=== PATIENT | female | born 1935 | race Caucasian/White ===

== ENCOUNTER 2017-06-11 09:31 | Outpatient (CLI) | payer MEDICARE, BC ==
--- NOTE | 2017-06-11 12:13 | ULT ---
RIGHT UPPER QUADRANT ULTRASOUND: Date: 06-11-17 History: Right upper quadrant abdominal pain. FINDINGS: The pancreas and common duct are obscured due to shadowing from bowel gas. There is a 1.9 cm hyperechoic mass in the right hepatic lobe. This may potentially represent a small hemangioma, but further imaging is recommended for further characterization. Gallbladder demonstrates a normal sonographic appearance. No gallbladder calculus is seen. Although t he common duct is not visualized, there does not appear to be intrahepatic biliary ductal dilatation. Limited visualized portions of the IVC and right kidney demonstrate a normal sonographic appearance. The right kidney measures 9.3 cm in length. IMPRESSION: 1. Hyperechoic mass in the right hepatic lobe. Further evaluation with CT abdomen following liver mas s protocol is recommended. 2. Nonvisualization of the common duct and pancreas. 3. No gallbladder calculi are seen. POS: ADITHYA
== END 2017-06-11 09:32 | disposition home or self-care (01) ==
LOC: ULT 09:31
PROVIDERS: ATTEND Family Medicine
DX: R10.9 Unspecified abdominal pain (principal); R16.0 Hepatomegaly, not elsewhere classified
CPT/HCPCS: 76705

== ENCOUNTER 2017-06-24 08:52 | Outpatient (CLI) | payer MEDICARE, BC ==
--- NOTE | 2017-06-24 15:32 | RAD ---
DOUBLE CONTRAST UPPER GI WITH SMALL BOWEL FOLLOW THROUGH: Date: 06/24/17 INDICATION: History of hiatal hernia. FLUOROSCOPIC TIME: 5.8 minutes with total exposure of 442.23 mGy*cm^2. FINDINGS: As seen on the comparison CT examination of 10/09/16 is moderate to prominent hiatal hernia. There ar e numerous tertiary contractions of the mid to distal esophagus. No definite intraluminal mass or str icture was identified. There was mild to moderate reflux demonstrated up to a mid thoracic spinal lev el. No definite intraluminal mass is evident within the stomach. Visualized proximal small bowel appe ared within normal limits on upper GI examination. Small bowel appeared normal on the small bowel fol low through examination. The small bowel transit time was 2 hours and 45 minutes. IMPRESSION: 1. Moderate to large hiatal hernia. 2. Numerous tertiary contractions of mid to distal esophagus may be related to presbyesophagus or re flux esophagitis. 3. Moderate gastroesophageal reflux. 4. Normal small bowel follow through. POS: ADITHYA
== END 2017-06-24 08:53 | disposition home or self-care (01) ==
LOC: RAD 08:52
PROVIDERS: ATTEND Family Medicine
DX: K44.9 Diaphragmatic hernia without obstruction or gangrene (principal); R13.10 Dysphagia, unspecified; R10.9 Unspecified abdominal pain; K21.9 Gastro-esophageal reflux disease without esophagitis
CPT/HCPCS: 74249

== ENCOUNTER 2018-12-03 15:37 | Outpatient (CLI) | payer MEDICARE, BC ==
--- NOTE | 2018-12-03 16:04 | RAD ---
EXAM: XR Abdomen 2 View PROVIDED CLINICAL HISTORY: Abdominal pain and diarrhea for 4 weeks COMPARISON: [facility] abdominal radiograph from upper GI on 06/24/2017 FINDINGS: Bowel gas pattern is overall nonspecific. Postsurgical changes are again seen in the epigastric regio n. No suspicious calcifications are seen. No suspicious calcifications are seen. Degenerative changes are again noted in the spine. IMPRESSION: Nonspecific bowel gas pattern.
== END 2018-12-03 15:38 | disposition home or self-care (01) ==
LOC: BICRAD 15:37
PROVIDERS: ATTEND Physician Assistant Medical
DX: R19.7 Diarrhea, unspecified (principal)
CPT/HCPCS: 74019

== ENCOUNTER 2019-01-15 08:05 | Outpatient (CLI) | payer MEDICARE, BC ==
--- NOTE | 2019-01-15 09:43 | ULT ---
LIVER ULTRASOUND: HISTORY: Epigastric pain, diarrhea. FINDINGS: Exam is technically difficult due to body habitus. The gallbladder is normal appearance. The common duct is difficult to visualize. It appears to be in the 3-4 mm range. The liver measures approxima tely 13 cm in length. Equivocal area of increased echogenicity within the right lobe not a definitiv e abnormality given the technically limited factors of this exam. DOPPLER EVALUATION WITH SPECTRAL ANALYSIS: Normal flow pattern is shown within the liver. The spleen measures 9.6 cm in length. The right kidney is normal in size and not obstructed. IMPRESSION: Technically limited exam. No definitive abnormality is seen. Subtle area of altered echogenicity in the right lobe of the liver is probably just related to technical factors. It does not have the typ ical echogenic appearance of a hemangioma. POS: [facility]
== END 2019-01-15 08:06 | disposition home or self-care (01) ==
LOC: BICULT 08:05
PROVIDERS: ATTEND Internal Medicine Gastroenterology
DX: R10.13 Epigastric pain (principal); R19.7 Diarrhea, unspecified; K76.89 Other specified diseases of liver
CPT/HCPCS: 76705

== ENCOUNTER 2019-08-14 08:14 | Outpatient (CLI) | payer MEDICARE, BC ==
--- NOTE | 2019-08-14 09:36 | CT ---
CT Abdomen Pelvis W Con: 08/14/2019 12:00 AM CLINICAL INFORMATION: Chronic diarrhea, weight loss, and upper abdominal pain COMPARISON: 10/09/2016 TECHNIQUE: Multiple contiguous axial images were obtained and a CT of the abdomen and pelvis with IV contrast. Oral contrast was administered. Coronal and sagittal reformats were performed. FINDINGS: Lower Chest: Moderate hiatal hernia. There is stable thickening of the wall of the stomach at the lev el of the diaphragm which may represent postsurgical change from a Edilia fundoplication. Abdomen: Liver: An enhancing mass in the right lobe the liver demonstrates peripheral puddling and likely repr esents a hemangioma measuring 1.4 cm in size. Bile Ducts: Normal caliber. Gallbladder: No calcified gallstones. Normal caliber wall. Pancreas: within normal limits. Spleen: within normal limits. Adrenals: within normal limits. Kidneys: within normal limits. Pelvis: Reproductive Organs: Status post hysterectomy. Ureters: within normal limits. Bladder: within normal limits. Peritoneum: No ascites or free air, no fluid collection. Bowel: Normal caliber. Scattered diverticula in the colon. Mesentery and Retroperitoneum: No enlarged mesenteric or retroperitoneal lymph nodes. Vessels: Normal. Abdominal Wall: Small bilateral fat-containing inguinal hernias. Bones: Degenerative changes in the spine. IMPRESSION: 1. Hepatic hemangioma 2. Hiatal hernia
[2019-08-14] MEDS ORDERED: Iopamidol-370 76% 500 ML 1 ML ONE (10:33)
== END 2019-08-14 08:15 | disposition home or self-care (01) ==
LOC: BICCT 08:14
PROVIDERS: ATTEND Physician Assistant Medical
DX: K52.9 Noninfective gastroenteritis and colitis, unspecified (principal); R10.10 Upper abdominal pain, unspecified; R63.4 Abnormal weight loss; K44.9 Diaphragmatic hernia without obstruction or gangrene; D18.03 Hemangioma of intra-abdominal structures
CPT/HCPCS: 74177; 82565; Q9967

== ENCOUNTER 2021-04-21 12:13 | Outpatient (CLI) | payer MEDICARE, BC | END 2021-04-21 12:14 | disposition home or self-care (01) | LOC: BICRAD 12:13 | PROVIDERS: ATTEND Family Medicine | DX: M79.662 Pain in left lower leg (principal); M25.562 Pain in left knee ==

== ENCOUNTER 2022-05-03 10:47 | Outpatient (CLI) | payer MEDICARE, BC | END 2022-05-03 10:48 | disposition home or self-care (01) | LOC: RAD 10:47 | PROVIDERS: ATTEND Physician Assistant Medical | DX: R10.13 Epigastric pain (principal); K44.9 Diaphragmatic hernia without obstruction or gangrene; K22.4 Dyskinesia of esophagus; R11.0 Nausea | CPT/HCPCS: 74220 ==

== ENCOUNTER 2022-08-16 17:10 | Inpatient (IN) | payer BC, MEDICARE ==
[2022-08-16] MEDS ORDERED: Fentanyl 100 MCG/2 ML VIAL ONE (17:38)
[2022-08-16] MEDS ORDERED: Morphine 2 MG/ML VIAL ONE ×2 (19:10→20:36)
[2022-08-16] MEDS ORDERED: Morphine 2 MG/ML VIAL SLOW IVP PRN (23:42)
[2022-08-16] MEDS ORDERED: Acetaminophen 325 MG TAB PO PRN (23:42)
[2022-08-16] MEDS ORDERED: Ondansetron PF 4 MG/2 ML Vial IVP PRN (23:42)
[2022-08-16] MEDS ORDERED: Ondansetron ODT 4 MG TAB PO PRN (23:42)
[2022-08-17 00:14] LABS: #Eosinphils 0.1 thou/uL (0.0-0.7); #Lymphocytes 0.7 thou/uL (1.20-3.40); #Monocytes 0.5 thou/uL (0.11-0.59); #Neutrophils 5.8 thou/uL (1.40-6.50); %Basophils 0.2 % (0.0-1.0); %Eosinophils 1.4 % (0.0-10.0); %Lymphocytes 10.2 % (21.0-51.0); %Monocytes 7.3 % (0.0-10.0); Hemoglobin 12.2 g/dL (12.0-16.0); Mean Corpuscular HGB CONC 32.5 g/dL (32.0-36.0); Mean Corpuscular Hemoglobin 28.3 pg (27.0-31.0); Mean Corpuscular Volume 87.2 fl (78.0-98.0); Mean Platelet Volume 8.6 fL (7.4-10.4); Platelet Count 139 10x3/uL (130-400); RBC Distribution Width 14.3 % (11.5-14.5); White Blood Cell (WBC) Count 7.2 10x3/uL (4.8-10.8)
[2022-08-17 00:43] LABS: ALT (SGPT) 10 U/L (8-55); AST (SGOT) 17 U/L (5-34); Albumin 3.6 g/dL (3.4-4.8); Alkaline Phosphatase 149 U/L (40-110); Anion Gap 12 mmol/L (10-20); BUN (Urea Nitrogen) 12 mg/dL (9.8-20.1); Calc. Creatinine Clearance 0 mL/min (70-130); Calcium 9.1 mg/dL (7.8-10.44); Carbon Dioxide 22 mmol/L (23-31); Chloride 107 mmol/L (98-107); Estimated GFR 75; Globulin 3.2 g/dL (2.4-3.5); Glucose 122 mg/dL (83-110); Potassium 4.2 mmol/L (3.5-5.1); Protein, Total 6.8 g/dL (5.8-8.1); Sodium 137 mmol/L (136-145)
[2022-08-17] MEDS ORDERED: Morphine 2 MG/ML VIAL ONE (01:41)
[2022-08-17 02:25] LABS: Bilirubin, Total 0.6 mg/dL (0.2-1.2)
[2022-08-17 02:32] VITALS: BMI 31.8
[2022-08-17] MEDS: HYDROcodone/Acetaminophen 5/325 mg Tablet PO PRN ×4 (03:37→21:13)
[2022-08-17] MEDS: Losartan 25 MG TAB PO SCH (08:49)
[2022-08-17] MEDS: Amlodipine 10 MG TAB PO SCH (08:49)
[2022-08-17] MEDS: Atorvastatin Calcium 10 MG TAB PO SCH (19:59)
[2022-08-17] MEDS: Metoprolol Tartrate 25 MG TAB PO SCH (20:02)
[2022-08-18] MEDS: HYDROcodone/Acetaminophen 5/325 mg Tablet PO PRN ×2 (05:20→10:41)
[2022-08-18] MEDS: Amlodipine 10 MG TAB PO SCH (08:27)
[2022-08-18] MEDS: Losartan 25 MG TAB PO SCH (08:27)
[2022-08-18] MEDS ORDERED: FLU VACC QS2022-23(65YR UP)/PF 240 MCG/0.7 ML SYRINGE IM ONE (09:00)
[2022-08-18] MEDS ORDERED: Polyethylene Glycol 3350 17 GM Packet PO PRN (15:17)
[2022-08-18] MEDS ORDERED: Bisacodyl 10 MG SUPP PR PRN (15:18)
[2022-08-18] MEDS: Metoprolol Tartrate 25 MG TAB PO SCH (21:05)
[2022-08-18] MEDS: Atorvastatin Calcium 10 MG TAB PO SCH (21:05)
[2022-08-18] MEDS: Polyethylene Glycol 3350 17 GM Packet PO SCH (21:05)
[2022-08-19] MEDS: Polyethylene Glycol 3350 17 GM Packet PO SCH ×2 (07:46→20:27)
[2022-08-19] MEDS: HYDROcodone/Acetaminophen 5/325 mg Tablet PO PRN (07:46)
[2022-08-19] MEDS: Losartan 25 MG TAB PO SCH (07:47)
[2022-08-19] MEDS: Amlodipine 10 MG TAB PO SCH (07:51)
[2022-08-19] MEDS: Acetaminophen 500 MG TAB PO SCH ×2 (15:36→20:27)
[2022-08-19] MEDS: Metoprolol Tartrate 25 MG TAB PO SCH (20:28)
[2022-08-19] MEDS: Atorvastatin Calcium 10 MG TAB PO SCH (20:28)
[2022-08-20] MEDS: Acetaminophen 500 MG TAB PO SCH ×3 (08:22→20:48)
[2022-08-20] MEDS: Polyethylene Glycol 3350 17 GM Packet PO SCH ×2 (08:24→20:49)
[2022-08-20] MEDS: Amlodipine 10 MG TAB PO SCH (08:25)
[2022-08-20] MEDS: Losartan 25 MG TAB PO SCH (08:25)
[2022-08-20] MEDS: Atorvastatin Calcium 10 MG TAB PO SCH (20:49)
[2022-08-20] MEDS: Metoprolol Tartrate 25 MG TAB PO SCH (20:50)
[2022-08-20] MEDS: oxyCODONE 5 MG TAB PO PRN (23:26)
[2022-08-21] MEDS: Polyethylene Glycol 3350 17 GM Packet PO SCH ×2 (09:57→20:54)
[2022-08-21] MEDS: Acetaminophen 500 MG TAB PO SCH ×3 (09:57→20:54)
[2022-08-21] MEDS: Losartan 25 MG TAB PO SCH (09:58)
[2022-08-21] MEDS: Amlodipine 10 MG TAB PO SCH (09:59)
[2022-08-21] MEDS: Metoprolol Tartrate 25 MG TAB PO SCH (20:55)
[2022-08-21] MEDS: Atorvastatin Calcium 10 MG TAB PO SCH (20:55)
[2022-08-22] MEDS: oxyCODONE 5 MG TAB PO PRN (04:23)
[2022-08-22] MEDS: Losartan 25 MG TAB PO SCH (09:01)
[2022-08-22] MEDS: Acetaminophen 500 MG TAB PO SCH ×3 (09:01→21:32)
[2022-08-22] MEDS: Polyethylene Glycol 3350 17 GM Packet PO SCH ×2 (09:01→21:32)
[2022-08-22] MEDS: Amlodipine 10 MG TAB PO SCH (09:01)
[2022-08-22] MEDS: Metoprolol Tartrate 25 MG TAB PO SCH (21:32)
[2022-08-22] MEDS: Atorvastatin Calcium 10 MG TAB PO SCH (21:32)
[2022-08-23 08:11] LABS: #Eosinphils 0.2 thou/uL (0.0-0.7); #Lymphocytes 0.9 thou/uL (1.20-3.40); #Monocytes 0.6 thou/uL (0.11-0.59); #Neutrophils 2.9 thou/uL (1.40-6.50); %Basophils 0.6 % (0.0-1.0); %Eosinophils 4.9 % (0.0-10.0); %Lymphocytes 18.4 % (21.0-51.0); %Monocytes 13.1 % (0.0-10.0); Hemoglobin 11.8 g/dL (12.0-16.0); Mean Corpuscular Hemoglobin 28.6 pg (27.0-31.0); Mean Corpuscular Volume 89.4 fl (78.0-98.0); Mean Platelet Volume 8.6 fL (7.4-10.4); Platelet Count 152 10x3/uL (130-400); RBC Distribution Width 14.7 % (11.5-14.5); Red Blood Cell (RBC) Count 4.14 mill/uL (4.20-5.40); White Blood Cell (WBC) Count 4.6 10x3/uL (4.8-10.8)
[2022-08-23 08:32] LABS: Anion Gap 14 mmol/L (10-20); BUN (Urea Nitrogen) 15 mg/dL (9.8-20.1); Calc. Creatinine Clearance 65 mL/min (70-130); Calcium 9.4 mg/dL (7.8-10.44); Carbon Dioxide 25 mmol/L (23-31); Chloride 104 mmol/L (98-107); Estimated GFR 69; Glucose 105 mg/dL (83-110); Potassium 4.6 mmol/L (3.5-5.1); Sodium 138 mmol/L (136-145)
[2022-08-23] MEDS: Polyethylene Glycol 3350 17 GM Packet PO SCH ×2 (09:43→20:35)
[2022-08-23] MEDS: Acetaminophen 500 MG TAB PO SCH ×3 (09:43→20:36)
[2022-08-23] MEDS: Amlodipine 10 MG TAB PO SCH (09:43)
[2022-08-23] MEDS: Losartan 25 MG TAB PO SCH (09:44)
[2022-08-23] MEDS: Atorvastatin Calcium 10 MG TAB PO SCH (20:35)
[2022-08-23] MEDS: Metoprolol Tartrate 25 MG TAB PO SCH (20:35)
[2022-08-23] MEDS: oxyCODONE 5 MG TAB PO PRN (20:36)
[2022-08-24 07:11] LABS: #Eosinphils 0.2 thou/uL (0.0-0.7); #Monocytes 0.5 thou/uL (0.11-0.59); #Neutrophils 3.3 thou/uL (1.40-6.50); %Basophils 0.2 % (0.0-1.0); %Eosinophils 3.7 % (0.0-10.0); %Lymphocytes 19.3 % (21.0-51.0); %Monocytes 10.5 % (0.0-10.0); %Neutrophils 66.4 % (42.0-75.0); Hemoglobin 11.7 g/dL (12.0-16.0); Mean Corpuscular HGB CONC 31.7 g/dL (32.0-36.0); Mean Corpuscular Volume 91.3 fl (78.0-98.0); Platelet Count 146 10x3/uL (130-400); RBC Distribution Width 14.6 % (11.5-14.5); Red Blood Cell (RBC) Count 4.05 mill/uL (4.20-5.40); White Blood Cell (WBC) Count 4.9 10x3/uL (4.8-10.8)
[2022-08-24 07:35] LABS: Anion Gap 11 mmol/L (10-20); BUN (Urea Nitrogen) 14 mg/dL (9.8-20.1); Calc. Creatinine Clearance 66 mL/min (70-130); Calcium 9.2 mg/dL (7.8-10.44); Carbon Dioxide 26 mmol/L (23-31); Chloride 104 mmol/L (98-107); Estimated GFR 70; Glucose 101 mg/dL (83-110); Potassium 4.7 mmol/L (3.5-5.1); Sodium 136 mmol/L (136-145)
[2022-08-24] MEDS: Losartan 25 MG TAB PO SCH (08:31)
[2022-08-24] MEDS: Amlodipine 10 MG TAB PO SCH (08:31)
[2022-08-24] MEDS: Acetaminophen 500 MG TAB PO SCH ×3 (08:31→21:08)
[2022-08-24] MEDS: Polyethylene Glycol 3350 17 GM Packet PO SCH ×2 (08:32→21:08)
[2022-08-24] MEDS: Metoprolol Tartrate 25 MG TAB PO SCH (21:08)
[2022-08-24] MEDS: Atorvastatin Calcium 10 MG TAB PO SCH (21:08)
[2022-08-25] MEDS: oxyCODONE 5 MG TAB PO PRN (05:13)
[2022-08-25] MEDS: Amlodipine 10 MG TAB PO SCH (08:43)
[2022-08-25] MEDS: Acetaminophen 500 MG TAB PO SCH ×3 (08:43→20:49)
[2022-08-25] MEDS: Losartan 25 MG TAB PO SCH (08:43)
[2022-08-25] MEDS: Polyethylene Glycol 3350 17 GM Packet PO SCH ×2 (08:44→20:46)
[2022-08-25] MEDS: Atorvastatin Calcium 10 MG TAB PO SCH (20:51)
[2022-08-25] MEDS: Metoprolol Tartrate 25 MG TAB PO SCH (20:51)
[2022-08-26] MEDS: Amlodipine 10 MG TAB PO SCH (08:55)
[2022-08-26] MEDS: Losartan 25 MG TAB PO SCH (08:56)
[2022-08-26] MEDS: Polyethylene Glycol 3350 17 GM Packet PO SCH ×2 (08:57→20:40)
[2022-08-26] MEDS: Acetaminophen 500 MG TAB PO SCH ×3 (08:59→20:39)
[2022-08-26] MEDS: Atorvastatin Calcium 10 MG TAB PO SCH (20:39)
[2022-08-26] MEDS: Metoprolol Tartrate 25 MG TAB PO SCH (20:39)
[2022-08-27] MEDS: Acetaminophen 500 MG TAB PO SCH ×2 (08:24→12:45)
[2022-08-27] MEDS: Polyethylene Glycol 3350 17 GM Packet PO SCH (08:25)
[2022-08-27] MEDS: Amlodipine 10 MG TAB PO SCH (08:25)
[2022-08-27] MEDS: Losartan 25 MG TAB PO SCH (08:25)
[2022-08-27 08:28] VITALS: BP 143/65
[2022-08-27 09:18] VITALS: TEMP 97.3
[2022-08-27] MEDS ORDERED: HYDROcodone/Acetaminophen 5/325 mg Tablet PO PRN (13:31)
[2022-08-27] MEDS ORDERED: Lidocaine 5% Patch TD SCH (13:45)
[2022-08-27] MEDS ORDERED: Transdermal Patch Removal TOP SCH ×2 (21:00)
[2022-08-28] MEDS ORDERED: Lidocaine 5% Patch TD SCH (09:00)
== END 2022-08-27 18:06 | DRG 552 ==
LOC: ERS 17:10 → T4-B 23:30 → OBSVTOIN 08-18 15:20
PROVIDERS: ADMIT Hospitalist; ATTEND Hospitalist
DX: M48.061 Spinal stenosis, lumbar region without neurogenic claudication (principal); M48.54XA Collapsed vertebra, not elsewhere classified, thoracic region, initial encounter for fracture; I48.91 Unspecified atrial fibrillation; E78.5 Hyperlipidemia, unspecified; I10 Essential (primary) hypertension; K59.00 Constipation, unspecified; Z20.822 Contact with and (suspected) exposure to COVID-19; M47.816 Spondylosis without myelopathy or radiculopathy, lumbar region; M43.16 Spondylolisthesis, lumbar region; M40.204 Unspecified kyphosis, thoracic region; Z28.21 Immunization not carried out because of patient refusal; Z79.899 Other long term (current) drug therapy; Z90.710 Acquired absence of both cervix and uterus; Z90.89 Acquired absence of other organs; Z98.890 Other specified postprocedural states
CPT/HCPCS: 36415; 72072; 72100; 72131; 80048; 80053; 85025; 87811; 96374; 96375; 96376; J1650; J2272; J3010; U0003; U0005

== ENCOUNTER 2023-01-03 13:30 | Outpatient (CLI) | payer MEDICARE | END 2023-01-03 13:31 | disposition home or self-care (01) | LOC: ULT 13:30 | PROVIDERS: ATTEND Family Medicine | DX: G45.9 Transient cerebral ischemic attack, unspecified (principal) | CPT/HCPCS: 93880 ==

== ENCOUNTER 2023-05-20 07:41 | Inpatient (IN) | payer BC, MEDICARE ==
[2023-05-20 08:12] LABS: #Eosinphils 0.2 thou/uL (0.0-0.7); #Monocytes 0.8 thou/uL (0.11-0.59); #Neutrophils 8.3 thou/uL (1.40-6.50); %Basophils 0.2 % (0.0-1.0); %Lymphocytes 13.8 % (21.0-51.0); %Neutrophils 76.8 % (42.0-75.0); Hematocrit 42.5 % (36.0-47.0); Hemoglobin 13.5 g/dL (12.0-16.0); Mean Corpuscular HGB CONC 31.8 g/dL (32.0-36.0); Mean Corpuscular Hemoglobin 29.1 pg (27.0-31.0); Mean Corpuscular Volume 91.6 fl (78.0-98.0); Mean Platelet Volume 10.5 fL (7.4-10.4); Platelet Count 160 10x3/uL (130-400); RBC Distribution Width 13.5 % (11.5-14.5); Red Blood Cell (RBC) Count 4.64 mill/uL (4.20-5.40); White Blood Cell (WBC) Count 10.8 10x3/uL (4.8-10.8)
[2023-05-20] MEDS ORDERED: Aspirin Chewable 81 MG TAB ONE (08:25)
[2023-05-20] MEDS ORDERED: Morphine 4 MG/ML VIAL ONE (08:25)
[2023-05-20 08:34] LABS: ALT (SGPT) 7 U/L (8-55); AST (SGOT) 15 U/L (5-34); Albumin 4.4 g/dL (3.4-4.8); Alkaline Phosphatase 140 U/L (40-110); Anion Gap 14 mmol/L (10-20); BUN (Urea Nitrogen) 13 mg/dL (9.8-20.1); Bilirubin, Total 0.4 mg/dL (0.2-1.2); Calc. Creatinine Clearance 0 mL/min (70-130); Calcium 9.8 mg/dL (7.8-10.44); Carbon Dioxide 21 mmol/L (23-31); Chloride 108 mmol/L (98-107); Estimated GFR 57; Globulin 3.2 g/dL (2.4-3.5); Glucose 162 mg/dL (83-110); Lipase 23 U/L (8-78); Magnesium 2.1 mg/dL (1.6-2.6); Potassium 4.3 mmol/L (3.5-5.1); Protein, Total 7.6 g/dL (5.8-8.1); Sodium 139 mmol/L (136-145)
[2023-05-20 08:36] LABS: Troponin I Less than 0.010 ng/mL (< 0.028)
[2023-05-20] MEDS ORDERED: Prochlorperazine 10 MG/2 ML VIAL ONE (09:04)
[2023-05-20] MEDS ORDERED: Benzocaine 20% Spray 60 ML CAN ONE (12:42)
[2023-05-20] MEDS ORDERED: Ondansetron ODT 4 MG TAB PO PRN (12:42)
[2023-05-20] MEDS ORDERED: Ondansetron PF 4 MG/2 ML Vial IVP PRN (12:42)
[2023-05-20] MEDS ORDERED: TETANUS, DIPHTHERIA TOX,ADULT (TDVAX) 0.5 ML VIAL IM ONE (12:42)
[2023-05-20] MEDS ORDERED: Ketorolac Tromethamine 30 MG/ML VIAL IVP PRN (12:49)
[2023-05-20] MEDS ORDERED: Ondansetron PF 4 MG/2 ML Vial ONE (13:30)
[2023-05-20] MEDS ORDERED: Morphine 2 MG/ML VIAL ONE (13:30)
[2023-05-20 17:49] VITALS: BMI 26.6
[2023-05-20] MEDS: Lactated Ringer's 1,000 ML IV SCH (18:35)
[2023-05-20] MEDS: Morphine 2 MG/ML VIAL SLOW IVP PRN ×2 (18:50→21:05)
[2023-05-20] MEDS: Metoprolol Tartrate 25 MG TAB PO SCH (20:52)
[2023-05-20] MEDS: Trospium 20 MG TAB PO SCH (20:52)
[2023-05-21] MEDS: Morphine 2 MG/ML VIAL SLOW IVP PRN
[2023-05-21] MEDS: Lactated Ringer's 1,000 ML IV SCH ×2 (00:01→08:59)
[2023-05-21 05:14] LABS: #Eosinphils 0.1 thou/uL (0.0-0.7); #Monocytes 0.8 thou/uL (0.11-0.59); #Neutrophils 6.1 thou/uL (1.40-6.50); %Basophils 0.4 % (0.0-1.0); %Eosinophils 1.7 % (0.0-10.0); %Lymphocytes 7.4 % (21.0-51.0); %Monocytes 9.9 % (0.0-10.0); %Neutrophils 80.2 % (42.0-75.0); Hematocrit 38.6 % (36.0-47.0); Hemoglobin 11.8 g/dL (12.0-16.0); Mean Corpuscular HGB CONC 30.6 g/dL (32.0-36.0); Mean Corpuscular Hemoglobin 28.9 pg (27.0-31.0); Mean Platelet Volume 10.3 fL (7.4-10.4); Platelet Count 144 10x3/uL (130-400); RBC Distribution Width 13.6 % (11.5-14.5); Red Blood Cell (RBC) Count 4.09 mill/uL (4.20-5.40); White Blood Cell (WBC) Count 7.6 10x3/uL (4.8-10.8)
[2023-05-21 05:19] LABS: Mean Corpuscular Volume 94.4 fl (78.0-98.0)
[2023-05-21 05:47] LABS: Anion Gap 18 mmol/L (10-20); BUN (Urea Nitrogen) 11 mg/dL (9.8-20.1); Calc. Creatinine Clearance 54 mL/min (70-130); Calcium 9.1 mg/dL (7.8-10.44); Carbon Dioxide 24 mmol/L (23-31); Chloride 108 mmol/L (98-107); Estimated GFR 66; Glucose 116 mg/dL (83-110); Potassium 4.8 mmol/L (3.5-5.1); Sodium 145 mmol/L (136-145)
[2023-05-21] MEDS ORDERED: Pantoprazole 40 MG VIAL IVP SCH (09:00)
[2023-05-21] MEDS ORDERED: Non-Formulary Item 1 EACH (Omeprazole [Omeprazole] 20 MG Capsule.Dr) PO SCH (09:00)
[2023-05-21] MEDS ORDERED: Non-Formulary Item 1 EACH (Losartan Potassium [Cozaar] 50 MG Tablet) PO SCH ×2 (09:00)
[2023-05-21] MEDS: Amlodipine 10 MG TAB PO SCH (09:34)
[2023-05-21] MEDS: Losartan 25 MG TAB PO SCH (09:35)
[2023-05-21] MEDS: Trospium 20 MG TAB PO SCH ×2 (09:36→21:43)
[2023-05-21] MEDS: Lidocaine 4% Patch TD SCH (09:36)
[2023-05-21] MEDS ORDERED: Colestipol 1 GM TAB PO SCH (21:00)
[2023-05-21] MEDS ORDERED: Atorvastatin Calcium 10 MG TAB PO SCH (21:00)
[2023-05-21] MEDS ORDERED: Transdermal Patch Removal TOP SCH (21:00)
[2023-05-21] MEDS ORDERED: Simvastatin 20 MG TAB PO SCH (21:00)
[2023-05-21] MEDS: Metoprolol Tartrate 25 MG TAB PO SCH (21:43)
[2023-05-22 08:01] VITALS: BP 135/60; TEMP 98.2
[2023-05-22] MEDS ORDERED: Clopidogrel Bisulfate 75 MG TAB PO SCH (09:00)
[2023-05-22] MEDS ORDERED: Aspirin 81 mg Enteric Coated Tablet PO SCH (09:00)
[2023-05-22] MEDS: Trospium 20 MG TAB PO SCH (09:10)
[2023-05-22] MEDS: Lidocaine 4% Patch TD SCH (09:10)
[2023-05-22] MEDS: Amlodipine 10 MG TAB PO SCH (09:10)
[2023-05-22] MEDS: Losartan 25 MG TAB PO SCH (09:11)
[2023-05-23] MEDS ORDERED: FLU VACC QS2023(65UP)/MF59C/PF 60 MCG/0.5 ML SYRINGE IM ONE (18:30)
== END 2023-05-22 12:00 | disposition home or self-care (01) | DRG 389 ==
LOC: ERS 07:41 → SURG B 12:48
PROVIDERS: ADMIT Specialist; ATTEND Specialist
PROC: 0D9670Z Drainage of Stomach with Drainage Device, Via Natural or Artificial Opening (ICD-10-PCS; principal; 2023-05-20)
DX: K56.609 Unspecified intestinal obstruction, unspecified as to partial versus complete obstruction (principal); J98.11 Atelectasis; K44.9 Diaphragmatic hernia without obstruction or gangrene; K21.9 Gastro-esophageal reflux disease without esophagitis; Z96.653 Presence of artificial knee joint, bilateral; I10 Essential (primary) hypertension; Z79.899 Other long term (current) drug therapy; Z98.890 Other specified postprocedural states
CPT/HCPCS: 36415; 44500; 71045; 74019; 74177; 74340; 80048; 80053; 83605; 83690; 83735; 83880; 84484; 85025; 93005; 94760; 96365; 96366; 96375; 96376; J0780; J1650; J1885; J2270; J2272; J2405; J7120

== ENCOUNTER 2023-05-27 12:39 | Emergency (ER) | payer MEDICARE ==
[2023-05-27 13:49] LABS: #Eosinphils 0.3 thou/uL (0.0-0.7); #Monocytes 0.7 thou/uL (0.11-0.59); #Neutrophils 5.6 thou/uL (1.40-6.50); %Basophils 0.4 % (0.0-1.0); %Eosinophils 4.2 % (0.0-10.0); %Lymphocytes 10.8 % (21.0-51.0); %Monocytes 9.7 % (0.0-10.0); %Neutrophils 74.6 % (42.0-75.0); Hematocrit 41.5 % (36.0-47.0); Mean Corpuscular HGB CONC 31.3 g/dL (32.0-36.0); Mean Corpuscular Volume 92.6 fl (78.0-98.0); Mean Platelet Volume 10.3 fL (7.4-10.4); Platelet Count 151 10x3/uL (130-400); RBC Distribution Width 14.1 % (11.5-14.5); Red Blood Cell (RBC) Count 4.48 mill/uL (4.20-5.40); White Blood Cell (WBC) Count 7.4 10x3/uL (4.8-10.8)
[2023-05-27 14:16] LABS: ALT (SGPT) Less than 7 U/L (8-55); AST (SGOT) 12 U/L (5-34); Albumin 3.8 g/dL (3.4-4.8); Alkaline Phosphatase 101 U/L (40-110); Anion Gap 15 mmol/L (10-20); BUN (Urea Nitrogen) 13 mg/dL (9.8-20.1); Bilirubin, Total 0.5 mg/dL (0.2-1.2); Calc. Creatinine Clearance 0 mL/min (70-130); Carbon Dioxide 26 mmol/L (23-31); Chloride 105 mmol/L (98-107); Estimated GFR 55; Globulin 2.6 g/dL (2.4-3.5); Glucose 109 mg/dL (83-110); Protein, Total 6.4 g/dL (5.8-8.1); Sodium 142 mmol/L (136-145)
[2023-05-27] MEDS ORDERED: Iopamidol-370 76% 500 ML MDV (1 ML CHARGE) ONE (14:57)
== END 2023-05-27 17:05 | disposition home or self-care (01) ==
LOC: ERS 12:39
DX: R10.9 Unspecified abdominal pain (principal); E78.00 Pure hypercholesterolemia, unspecified; I10 Essential (primary) hypertension; I48.91 Unspecified atrial fibrillation; Z79.899 Other long term (current) drug therapy; Z79.82 Long term (current) use of aspirin
CPT/HCPCS: 36415; 74177; 80053; 83605; 85025; Q9967